=== PATIENT | female | born 1985 | race Caucasian/White ===

== ENCOUNTER → 2019-05-13 12:10 | Outpatient (CLI) | payer OTHER, SELFPAY ==
[2019-05-13 13:01] LABS: Add Manual Diff / Slide Review NO; Basophils Absolute Auto 100 /uL (0-100); Basophils Percent Auto 0.8 % (0-2); Eosinophils Absolute Auto 500 /uL (0-450); Eosinophils Percent Auto 3.8 % (2-4); Hematocrit 39.2 % (36-46); Hemoglobin 13.1 g/dL (12.0-16.0); Lymphocytes Absolute Auto 2900 /uL (1100-4500); Lymphocytes Percent Auto 24.2 % (25-40); Mean Corpuscular HGB Conc 33.5 % (30-36); Mean Corpuscular Hemoglobin 29.6 PG (26-34); Mean Corpuscular Volume 88.5 fL (80-100); Monocytes Absolute Auto 1200 /uL (0-900); Monocytes Percent Auto 10.2 % (3-14); Neutrophils Absolute Auto 7200 /uL (1500-7000); Platelet Count 273 X10^3/uL (150-400); Red Blood Cell Count 4.43 X10^6/uL (4.0-5.2); Red Cell Distribution Width 12.9 % (11.6-14.8); White Blood Cell Count 11.9 X10^3/uL (4.5-11.0)
[2019-05-13 13:13] LABS: Appearance Urine UA CLEAR; Bilirubin Urine UA NEGATIVE (NEGATIVE); Color Urine UA YELLOW; Glucose Urine UA NEGATIVE (Negative); Ketones Urine UA NEGATIVE (NEGATIVE); Leukocyte Esterase Urine UA NEGATIVE (NEGATIVE); Nitrite Urine UA NEGATIVE (Negative); Occult Blood Urine UA NEGATIVE (Negative); Protein Urine UA NEGATIVE (Negative); Specific Gravity Urine UA 1.015 (1.000-1.035); Urobilinogen Urine UA 0.2 E.U./dL (0.2)
[2019-05-13 13:19] LABS: pH Urine UA 5.5 (4.5-8.0)
[2019-05-13 13:27] LABS: Hemoglobin A1C% w Est Avg Glu 5.1 % (4.0-6.0)
[2019-05-13 16:36] LABS: Hepatitis B Surface Antigen NEGATIVE s/c (NEGATIVE); Rubella Antibody IgG 44.7 IU/mL (>15)
[2019-05-13 16:53] LABS: HIV 1 & 2 Ab/Ag 4th Gen Combo NEGATIVE (NEGATIVE); Hep C Virus Ab w/Reflex Quant NEGATIVE s/c (NEGATIVE)
[2019-05-15 14:35] LABS: Rubeola Measles IgG < 13.50 AU/mL (< 13.50); Varicella IgG Antibody < 135.00 Index (< 135.00)
[2019-05-15 20:36] LABS: RPR Screen Nonreactive (Nonreactive)
== END ==
PROVIDERS: Referring Provider Obstetrics & Gynecology; Visit Provider Obstetrics & Gynecology
DX: Z34.01 Encounter for supervision of normal first pregnancy, first trimester (principal)
CPT/HCPCS: 36415; 80055; 81003; 83036; 86735; 86765; 86787; 86803; 86850; 86900; 86901; 87086; 87389

== ENCOUNTER → 2019-08-05 12:11 | Outpatient (CLI) | payer OTHER, SELFPAY ==
--- NOTE | 2019-08-05 12:12 | DI.US.S_ITS ---
PROCEDURE: US OB >= 14 WEEKS FETUS INDICATIONS: ANATOMY OUTSIDE/PRIOR DATING DATA: Last menstrual period (LMP): Not available. LMP-based estimated date of delivery (SIMRAN): Not available. First dating scan (date and location): 05/13/19. Estimated date of delivery (SIMRAN) from first dating scan: 12/20/19. TECHNIQUE: Real-time scanning was performed of the fetus, with image documentation and biometric measurements. Endovaginal scanning: Not needed COMPARISON: None. FINDINGS: General: A single living intrauterine gestation is present. Presentation: Breech. Placenta: Placental position is anterior, without previa. Amniotic fluid index: 17.5 cm, normal range is 5-24 cm. heart rate: 150 beats per minute. Maternal cervical canal: 4.5 cm long. Normal lower limit is 2.5 cm. biometrics: Biparietal diameter: 4.6 cm, 20 weeks 0 days Head circumference: 17.2 cm, 19 weeks 5 days Abdominal circumference: 14.7 cm, 20 weeks 0 days Femur length: 3.3 cm, 20 weeks 3 days Estimated gestational age from initial scan: 20 weeks 3 days Composite gestational age from present scan: 20 weeks 0 days Estimated weight and percentile: 336 g, 41st percentile Measurement variability for biometric dating: +/- 7 days from 14 weeks to 15 weeks 6 days gestation, +/- 10 days from 16 weeks to 21 weeks 6 days gestation, +/- 2 weeks from 22 weeks to 27 weeks 6 days gestation, +/- 3 weeks for 28 weeks gestation or later. weight reference: 4500 g or EFW >90/95% is considered macrosomia or large for gestational age. EFW <10% is small for gestational age. EFW 5% or less is considered intra-uterine growth restriction. Anatomic survey: Neuro: Ventricles are non-dilated at less than 10 mm. Cisterna magna is normal at 3-11 mm. Cerebellum is normal in size and morphology. Nuchal skin fold: Normal at less than 6 mm between 14-21 weeks gestational age. Face: Nose and lips, facial profile are normal. Spine: No evidence for spina bifida. Heart: 4-chambered heart is present, with normal ventricular outflow tracts. Diaphragm: Diaphragm is intact. Stomach: Left-sided stomach is present. Kidneys: No hydronephrosis. Normal is less than 5 mm in 2nd trimester, less than 7 mm in 3rd trimester. Cord: 3-vessel cord has orthotopic insertion. Bladder: Normal in size. Extremities: All 4 extremities identified. IMPRESSION: Appropriate interval growth, no anomaly seen. The delivery date is projected to be centered on 12/20/19. Dictated by: Jordy Rock M.D. on 08/05/2019 at 14:20 Approved by: Jordy Rock M.D. on 08/05/2019 at 14:26
== END ==
PROVIDERS: Referring Provider Obstetrics & Gynecology; Visit Provider Obstetrics & Gynecology
DX: Z34.02 Encounter for supervision of normal first pregnancy, second trimester (principal); Z3A.20 20 weeks gestation of pregnancy
CPT/HCPCS: 76811

== ENCOUNTER → 2019-10-02 11:30 | Outpatient (CLI) | payer OTHER, SELFPAY ==
[2019-10-02 13:31] LABS: Hematocrit 37.1 % (36-46); Hemoglobin 12.5 g/dL (12.0-16.0)
[2019-10-02 14:21] LABS: GTT (PREG) 1 Hour PP 50gm Dose 107 mg/dL (76-139)
== END ==
PROVIDERS: PCP Obstetrics & Gynecology; Referring Provider Obstetrics & Gynecology; Visit Provider Obstetrics & Gynecology
DX: Z34.02 Encounter for supervision of normal first pregnancy, second trimester (principal); Z3A.24 24 weeks gestation of pregnancy
CPT/HCPCS: 36415; 82950; 85014; 85018

== ENCOUNTER → 2019-11-27 10:05 | Outpatient (CLI) | payer OTHER, SELFPAY ==
[2019-11-28 12:10] LABS: Strep Grp B PCR NEG for Grp B Strep
== END ==
PROVIDERS: PCP Obstetrics & Gynecology; Visit Provider Obstetrics & Gynecology
DX: Z34.03 Encounter for supervision of normal first pregnancy, third trimester (principal); Z3A.36 36 weeks gestation of pregnancy
CPT/HCPCS: 87653

== ENCOUNTER 2019-12-14 08:20 | Inpatient (IN) | payer OTHER, SELFPAY ==
--- NOTE | 2019-12-14 09:06 | P.HPOB_ITS ---
OB HPI Date/Time Date of admission: 12/14/19 Date Patient Seen: 12/14/19 Time Patient Seen: 09:06 History of Present Condition Chief complaint: OBS : 1 Para: 0 Estimated Date of Delivery: 12/23/19 Estimated Gestational Age (weeks): 38 Narrative: Sabi Benton is a 34 year old @38+5 presenting w [facility] SROM for clear fluid at 2AM, confirmed on presentation with amnisure and with ongoing leakage. She reports rare contractions, good movement, no vaginal bleeding, and no other complaints obstetrical or otherwise. Her has been uncomplicated, and she has no contributory medical, surgical, family, or social history. Indications Indication for induction OB: other (premature rupture of membranes) History of Present care: good care, initiated at week # (8), number of visits (13) and pounds weight gain (30) Dating criteria: LMP confirmed by 1st trimester US Ultrasounds: normal 1st trimester US and normal mid trimester US Obstetrical complications: none Medical complications: none Preadmission Labs Blood type: A (+) positive -: Antibody screen: negative, GBS status: negative, HBsAG: negative, HIV: negative and RPR/VDLR: negative -: Chlamydia screen: not detected and Gonorrhea screen: not detected -: Rubella: immune and Varicella: not immune PAP: Normal Sequential screen: declined aneuploidy screening and MSAFP Urine: mixed gram positive keyla 1 hr GTT: 107 Evaluation Evaluation Baseline heart rate: 140 Variability: Moderate (11-25) monitor accelerations: Present monitor decelerations: Absent Contraction Frequency (minutes): 20 Category of Tracing: Reactive Cervical dilation (cm): 1 Cervical effacement (%): 25 station: -3 Non-invasive Membranes Rupture Test: positive [facility] Medical History ADHD (Acute ~1996) Allergies (Chronic ~2006) Chicken pox (Resolved ~1988) Headache (Acute) Irregular menstrual cycle (Chronic ~2018) Kidney infection (Acute) Surgical History History of wisdom tooth extraction (Acute) Family History Mother Depression Alcoholism Heavy smoker Father Parkinsons Grandfather Alcoholism Heavy smoker Grandmother Diabetes mellitus Depression History of open heart surgery Grandfather Myocardial infarct Grandmother Cancer Breast cancer Social History marital status: pets and animals: Yes (cat X 1 and aware; and a dog) education level: college (some college) occupational status: employed ([employer] ) current occupational exposures/hazards: No special jojo needs: No Smoking Status: Former smoker (weed - former) second hand exposure: No alcohol intake: former (pre- : socially) substance use type: marijuana (former) Meds Home Medications and Allergies Home Medications Medication Instructions Recorded Confirmed Type prenat.vits,rossana,fpu-stcp-qhend 1 tab PO DAILY 05/13/19 12/14/19 History Allergies Allergy/AdvReac Type Severity Reaction Status Date / Time NSAIDS (Non-Steroidal Allergy Severe Closes up Verified 11/13/19 16:25 Anti-Inflamma airway! Review of Systems Constitutional Constitutional: Reports system reviewed and no additional complaints, except as documented Cardiovascular Cardiovascular: Reports system reviewed and no additional complaints, except as documented Respiratory Respiratory: Reports system reviewed and no additional complaints, except as documented Gastrointestinal Gastrointestinal: Reports system reviewed and no additional complaints, except as documented Genitourinary Genitourinary: Reports as per HPI Neurologic Neurologic: Reports system reviewed and no additional complaints, except as documented Exam Vital Signs (past 8 hours): 117/58, HR 90, T 35.8C Const General: cooperative, healthy appearing, comfortable and well developed GI Palpation: soft and No tender External Female Exam: normal external appearance Presentation: vertex Estimated Weight (lbs): 7 Amniotic Fluid: clear Extrem General: normal to inspection Assessment and Plan Assessment and Plan Assessment and Plan narrative: This patient presents with SROM, confirmed on admission. She has a alfred score of 2, with few contractions on toco. She will undergo cervical ripening with PO cytotec, with reevaluation between each dose with a low threshold to transition to pitocin. The risks of prolonged rupture and the option of pitocin vs. cytotec were discussed with the patient, who vocalized understanding. - 50mcg cytotec PO q4hr - EFM, toco per protocol - labs, covid test pending - light meal this AM
[2019-12-14] MEDS: miSOPROStoL 25 MCG TABLET 50 MCG PO ×2 (09:19→13:06)
[2019-12-14 09:23] LABS: COVID19 -Nasal RAPID Negative (Negative)
[2019-12-14 10:50] LABS: Add Manual Diff / Slide Review NO; Basophils Absolute Auto 100 /uL (0-100); Basophils Percent Auto 0.5 % (0-2); Eosinophils Absolute Auto 300 /uL (0-450); Eosinophils Percent Auto 2.7 % (2-4); Hematocrit 36.3 % (36-46); Hemoglobin 12.5 g/dL (12.0-16.0); Lymphocytes Absolute Auto 2100 /uL (1100-4500); Lymphocytes Percent Auto 17.5 % (25-40); Mean Corpuscular HGB Conc 34.3 % (30-36); Mean Corpuscular Hemoglobin 29.8 PG (26-34); Mean Corpuscular Volume 86.9 fL (80-100); Monocytes Absolute Auto 900 /uL (0-900); Neutrophils Absolute Auto 8400 /uL (1500-7000); Neutrophils Percent Auto 71.3 % (50-75); Platelet Count 228 X10^3/uL (150-400); Red Blood Cell Count 4.18 X10^6/uL (4.0-5.2); Red Cell Distribution Width 13.1 % (11.6-14.8); White Blood Cell Count 11.7 X10^3/uL (4.5-11.0)
--- NOTE | 2019-12-14 13:11 | PM.OBPNLAB ---
Date/Time Date Patient Seen: 12/14/19 Time Patient Seen: 13:14 Pain Control Pain control: tolerating well Pelvic Exam Dilation (cm): 1 Effacement (%): 70 station: -3 Amniotic membrane status: Leaking (clear) Comments: alfred score 5 Status status: Category l Heart Rate Baseline: 140 Monitor Accelerations: Present Monitor Decelerations: Absent Monitor Variability: Moderate Assessment and Plan Assessment: induction ongoing Plan: continuous present management Comments: patient remains unfavorable, will proceed with second dose oral cytotec
[2019-12-14 15:00] VITALS: BP 117/58
--- NOTE | 2019-12-14 17:10 | PM.OBPNLAB ---
Date/Time Date Patient Seen: 12/14/19 Time Patient Seen: 17:10 Pain Control Pain control: tolerating well Pelvic Exam Dilation (cm): 1 Effacement (%): 90 station: -2 Amniotic membrane status: Leaking (clear) Comments: 1.5cm, alfred score 9 Contractions Contraction frequency (min): 5 Contraction pattern: Regular Status status: Category l Heart Rate Baseline: 140 Monitor Accelerations: Present Monitor Decelerations: Absent Monitor Variability: Moderate Assessment and Plan Assessment: induction ongoing Plan: begin patient augmentation Comments: This patient presents for IOL for PROM at term, and has achieved a favorable cervix with a alfred score of 9. She will be induced with pitocin per the usual protocol.
[2019-12-14] MEDS: OXYTOCIN PREMIX 30 UNIT/500 ML PLAST..BAG IV (17:53)
[2019-12-14] MEDS: LACTATED RINGERS 1,000 ML 100 ML IV (17:53)
--- NOTE | 2019-12-14 22:32 | PM.AN.REGBLK ---
Regional Block Pre-procedure Procedure: Continuous Lumbar Epidural for L&D Attending OB provider: Cat LEES/KENN narrative: term labor, SROM at 0200 this am. Hx: No personal or family history of anesthesia problems. ASA Class: II Labs: Hct 36.3 % (36-46) 12/14/19 10:30 Plt Count 228 X10^3/uL (150-400) 12/14/19 10:30 Medications: Current Medications Generic Name Dose Route Start Last Admin Trade Name Freq PRN Reason Stop Dose Admin Diphenhydramine HCl 25 mg 12/14/19 21:29 Benadryl IV Q10M PRN Pruritis Lactated Ringer's 1,000 mls @ 100 mls/hr 12/14/19 09:15 12/14/19 17:53 Lactated Ringers IV 100 mls/hr CONT WINSTON Administration Oxytocin/Lactated Ringer's 30 unit in 500 mls @ 1 mls/hr 12/14/19 17:15 12/14/19 17:53 Oxytocin Premix IV 1 milliunit/min TITRATE WINSTON 1 mls/hr Administration Protocol 1 MILLIUNIT/MIN FENT 2MCG/ML BUPIV 0.125% EPI 200 mcg in 100 mls @ 6 mls/hr 12/14/19 21:30 Fentanyl/Bupiv/Ns 2mcg/Ml - 0.125% EPIDURAL CONT WINSTON Ondansetron HCl 4 mg 12/14/19 09:05 Zofran IV Q4HR PRN Nausea And Vomiting Allergies: Allergies Allergy/AdvReac Type Severity Reaction Status Date / Time NSAIDS (Non-Steroidal Allergy Severe Closes up Verified 11/13/19 16:25 Anti-Inflamma airway! Procedure Insertion date: 12/14/19 Insertion time: 22:05 Prep/Local: betadine x3 Interspace: L2-3 Patient position: sitting Needle: 18 gauge Foruforevertead (CSE@22:11 27g Pencan through Hustead, clear CSF, 1mL 0.25% bupiv) Loss of resistance with: saline MICHELE at (cm): 5 Catheter placed at SKIN (cm): 11 Catheter in SPACE (cm): 6 Insertion: No CSF, No Blood, No Paresthesia with insertion, No Paresthesia with injection and No Test dose reaction Initial Medications TEST DOSE time: 22:14 TEST DOSE: 1.5% lidocaine with epinephrine 1:200k (mL): 3 BOLUS DOSE time: 22:21 BOLUS DOSE (mL): 3 BOLUS DOSE med: other (infusate) Infusion INFUSION: 0.125% bupivacaine and with fentanyl 2 mcg/mL Initial rate (mL/hr): 6 Subsequent interventions: , no complications Post-procedure Anesthesia time START: 22:05 Anesthesia time END: 05:12 Post-procedure Anesthesia Assessment: Yes CV function: HR/BP stable, Yes Resp function: RR/sat/airway adequate, Yes Post-op hydration adequate, Yes Pain control adequate, Yes Nausea & vomiting absent, Yes Mental status appropriate and No Anesthesia complications
[2019-12-15] MEDS: CALCIUM CARBONATE 500 MG TAB 1000 MG PO (01:30)
--- NOTE | 2019-12-15 05:37 | P.PCNOB_ITS ---
Events: Premature Rupture of Membrane and Prolonged Rupture of Membrane Labor & Delivery Delivery date: 12/15/19 Intrapartal events: Acceleration and Deceleration Cervical ripening method: per misoprostal protocol Induction method: per pitocin protocol Delivery monitor: external FHT and external uterine Route of delivery: L&D Laceration Description: Perineal - 2nd Degree Delivery repair: vicryl Estimated blood loss (mL): 200 Anesthesia type: Epidural Narrative: This patient presented 7 hours after PROM for clear fluid. She had a alfred score of 2, and underwent cervical ripening with two doses of 50mcg PO cytotec before transitioning to pitocin per protocol. After 4 hours, the pitocin was stopped due to uterine tachysystole. She progressed well and spontaneously, and after a short pushing stage, was delivered of a healthy baby girl. Apgars were 9+9, weight 6#8, shoulders delivered with ease, and there was no nuchal cord. The placenta delivered spontaneously and intact shortly thereafter, and a 2nd degree perineal laceration was repaired with 3-0 vicryl in the usual fashion. The patient was administered 30u pitocin in her IV fluid bolus after delivery per the usual protocol. There were no other intrapartum or immediate complications. Patient was GBS negative, was ruptured for approximately 27 hours prior to delivery, and there were no signs of chorioamnionitis. [place] Baby 1: Infant gender: Female Presentation: vertex position: Right Occiput Anterior (NACHO) Placenta delivery description: Spontaneous cord vessel description: 3 Vessels score (1 min): 9 score (5 min): 9 Plan for aftercare: Routine care.
[2019-12-15] MEDS: ACETAMINOPHEN 325 MG TABLET 650 MG PO ×2 (12:11→18:49)
[2019-12-15] MEDS: DOCUSATE 100 MG CAPSULE PO ×2 (12:11→18:49)
[2019-12-15] MEDS: OXYCODONE IR 5 MG TABLET PO (19:56)
[2019-12-15] MEDS: DERMOPLAST SPRAY 20% 60 ML 1 SPRAY TOP (19:56)
[2019-12-16] MEDS: OXYCODONE IR 5 MG TABLET PO (06:00)
--- NOTE | 2019-12-16 08:06 | P.DS_ITS ---
Discharge Providers Provider Date of admission: 12/14/19 08:20 Discharge Date: 12/16/19 Primary care physician: Cat Liu MD Consults: 12/16/19 05:36 Consult to Radioisotope Technician Routine Comment: Discharge provider: Cat Liu MD Summary Hospital Course Date Patient Seen: 12/16/19 Time Patient Seen: 08:07 Procedures: Hospital Course: This patient is a 34yo now P1 who presented with PROM and was induced with oral cytotec and pitocin. She progressed to fully dilated and after a short pushing stage, was delivered of a healthy baby girl without complication. A 2nd degree perineal laceration was repaired in the usual fashion, and she was discharged on PPD#1 with routine precautions and follow up. Peripartum Data Laceration Description: Perineal - 2nd Degree Procedures: complications: none [place] 1: Gender: Female Disposition of : home Status at Discharge Cognitive/behavioral status at discharge: oriented Functional status at discharge: independent ambulation Overall status at discharge: patient is progressing back to baseline Time Spent with Patient Time attestation: Total time spent providing and/or coordinating discharge services: Objective Labs Result Diagrams: 12/14/19 10:30 Exam Vital Signs (past 8 hours): 111/57, HR 76 Narrative Exam Narrative: Patient feeling well this AM, voiding, tolerating PO, ambulating, passing flatus, mild to moderate lochia. Pain controlled on tylenol and oxycodone, patient allergic to NSAIDs. Discharge precautions discussed. Const General: cooperative, healthy appearing and comfortable Resp Effort & Inspection: normal respiratory effort Auscultation: clear to auscultation bilaterally Cardio Rate: regular rate Rhythm: regular rhythm GI Palpation: soft and No tender External Female Exam: normal external appearance Skin General: no rashes or lesions noted Extrem General: normal to inspection Discharge Plan Discharge Plan Patient Disposition: Home Discharge orders & Medications Prescriptions: New acetaminophen 325 mg capsule 650 mg PO Q6H PRN (Reason: pain (scale score 4-6)) Qty: 30 RF: 0 oxycodone 5 mg tablet 5 mg PO Q6H PRN (Reason: pain) Qty: 14 RF: 0 Continued prenat.vits,rossana,eru-qsco-xubpe Tablet 1 tab PO DAILY RF: 0 Follow up/Referrals: Cat Liu MD [Primary Care Provider] - 6 Weeks () Diet/Activity/Treatments Diet: Regular Activity: Nothing in the vagina for 6 weeks. Avoid lifting more than 10 lbs for 6 weeks. If you have increasing bleeding, pain, fevers, chills, trouble breathing, headaches, visual changes, or any other concerning symptoms, call or come to the ED. Skin/Wound/Dressing Care Report to your healthcare provider any signs of infection, such as:: chills, fever, night sweats, increased pain, unusual drainage and unusual redness Visit Report/Discharge Packet Instructions: DI for Labor and Delivery, Vaginal Discharge Data Primary Care Provider: Cat Liu
[2019-12-16] MEDS: DOCUSATE 100 MG CAPSULE PO (09:01)
[2019-12-16] MEDS: ACETAMINOPHEN 325 MG TABLET 650 MG PO (09:01)
[2019-12-16 09:38] VITALS: BP 111/72; PULSE 74; RESP 16; TEMP 36.5
== END 2019-12-16 11:34 | disposition home or self-care (01) | DRG 807 ==
PROVIDERS: Admitting Provider Obstetrics & Gynecology; PCP Obstetrics & Gynecology; Referring Provider Obstetrics & Gynecology; Visit Provider Obstetrics & Gynecology
DX: O42.12 Full-term premature rupture of membranes, onset of labor more than 24 hours following rupture (principal); Z37.0 Single live birth; Z3A.38 38 weeks gestation of pregnancy; O70.1 Second degree perineal laceration during delivery; Z11.59 Encounter for screening for other viral diseases
CPT/HCPCS: 01967; 36415; 59050; 59400; 85025; 86850; 86900; 86901; 87635; G0379; J2590

== ENCOUNTER → 2021-01-27 14:12 | Outpatient (CLI) | payer OTHER, SELFPAY ==
--- NOTE | 2021-01-27 14:13 | DI.US.S_ITS ---
PROCEDURE: US OB <= 14 WEEKS FETUS INDICATIONS: initial us for dating and viability OUTSIDE/PRIOR DATING DATA: Last menstrual period (LMP): 11/26/2020. LMP-based estimated date of delivery (SIMRAN): 09/02/2021. First dating scan (date and location): 01/27/2021. Estimated date of delivery (SIMRAN) from first dating scan: 08/31/2021. TECHNIQUE: Real-time scanning was performed of the fetus and maternal pelvic organs, with image documentation. Endovaginal scanning was also performed to better visualize the fetus and maternal ovaries. COMPARISON: [facility], , OB <= 14 WEEKS FETUS, 05/13/2019, 11:55. FINDINGS: Embryo: [place]-rump length measures 2.4 cm consistent with 9 week 1 day gestation. Normal appearing yolk sac. Heart rate: 173 beats per minute Perigestational bleed measures 1.9 x 0.9 x 0.6 cm Measurement variability in dating: +/- 4 weeks by LMP, +/- 7 days by mean sac diameter (use before 6 weeks gestation if crown-rump length not able to be measured), +/- 5 days by crown-rump length (up to 8 weeks 6 days gestation), +/- 7 days by crown-rump length (up to 13 weeks 6 days gestation). Maternal organs: Ovaries show appropriate vascularity and echotexture bilaterally. A 2 cm left corpus luteum cyst noted. . IMPRESSION: 1. Single live intrauterine consistent with a 9 week 1 day gestation 2. Small perigestational bleed measures 1.9 x 0.9 cm Approved by: Sonu Taylor M.D. on 01/27/2021 at 15:23
== END ==
PROVIDERS: PCP Family Medicine; Referring Provider Family Medicine; Visit Provider Family Medicine
DX: O46.91 Antepartum hemorrhage, unspecified, first trimester (principal); O34.81 Maternal care for other abnormalities of pelvic organs, first trimester; N83.12 Corpus luteum cyst of left ovary; Z3A.09 9 weeks gestation of pregnancy
CPT/HCPCS: 76801; 76817

== ENCOUNTER → 2021-03-31 14:59 | Outpatient (CLI) | payer OTHER, SELFPAY ==
[2021-03-31 15:47] LABS: Add Manual Diff / Slide Review NO; Basophils Absolute Auto 0 /uL (0-100); Basophils Percent Auto 0.4 % (0-2); Eosinophils Absolute Auto 600 /uL (0-450); Hematocrit 36.9 % (36-46); Hemoglobin 12.4 g/dL (12.0-16.0); Lymphocytes Absolute Auto 2400 /uL (1100-4500); Lymphocytes Percent Auto 21.1 % (25-40); Mean Corpuscular HGB Conc 33.6 % (30-36); Mean Corpuscular Hemoglobin 29.5 PG (26-34); Mean Corpuscular Volume 87.6 fL (80-100); Monocytes Absolute Auto 800 /uL (0-900); Monocytes Percent Auto 7.3 % (3-14); Neutrophils Absolute Auto 7400 /uL (1500-7000); Neutrophils Percent Auto 66.2 % (50-75); Platelet Count 244 X10^3/uL (150-400); Red Blood Cell Count 4.21 X10^6/uL (4.0-5.2); Red Cell Distribution Width 13.4 % (11.6-14.8); White Blood Cell Count 11.2 X10^3/uL (4.5-11.0)
[2021-04-01 06:50] LABS: RPR Screen Non Reactive (Non Reactive)
[2021-04-01 08:08] LABS: Varicella IgG Antibody <135 index (Immune >165)
[2021-04-01 20:20] LABS: Hepatitis B Surface Antigen NEGATIVE s/c (NEGATIVE)
[2021-04-01 20:43] LABS: HIV 1 & 2 Ab/Ag 4th Gen Combo NEGATIVE (NEGATIVE); Hep C Virus Ab w/Reflex Quant NEGATIVE s/c (NEGATIVE)
== END ==
PROVIDERS: PCP Family Medicine; Referring Provider Family Medicine; Visit Provider Family Medicine
DX: Z34.90 Encounter for supervision of normal pregnancy, unspecified, unspecified trimester (principal)
CPT/HCPCS: 36415; 80055; 86787; 86803; 86850; 86900; 86901; 87389

== ENCOUNTER → 2021-04-17 12:38 | Outpatient (CLI) | payer OTHER, SELFPAY ==
--- NOTE | 2021-04-17 12:40 | DI.US.S_ITS ---
PROCEDURE: US OB >= 14 WEEKS FETUS INDICATIONS: ANATOMY OUTSIDE/PRIOR DATING DATA: Last menstrual period (LMP): November 26, 2020. LMP-based estimated date of delivery (SIMRAN): September 02, 2021. First dating scan (date): January 27, 2021. Estimated date of delivery (SIMRAN) from first dating scan: August 31, 2021. TECHNIQUE: Real-time scanning was performed of the fetus, with image documentation and biometric measurements. COMPARISON: [facility], , OB >= 14 WEEKS FETUS, 11/27/2019, 10:13. FINDINGS: General: A single living intrauterine gestation is present. Presentation: Vertex. Placenta: Placental position is posterior , without previa. Amniotic fluid index: 13.6 cm, normal range is 5-24 cm. Single deepest vertical pocket is 4 cm. heart rate: 145 beats per minute. Maternal cervical canal: 5.1 cm long. Normal lower limit is 2.5 cm. biometrics: Biparietal diameter: 4.9 cm Head circumference: 18.1 cm Abdominal circumference: 16 cm Femur length: 3.6 cm Clinically estimated gestational age: 402 g +/-59 g; 76 percentile Composite gestational age from present scan: 21 weeks Estimated weight and percentile: 20 weeks, 4 days Anatomic survey: Neuro: Ventricles are non-dilated at less than 10 mm. Cisterna magna is normal at 3-11 mm. Cerebellum is normal in size and morphology. Nuchal skin fold: Normal at less than 6 mm between 14-21 weeks gestational age. Face: Nose and lips, facial profile are normal. Spine: No evidence for spina bifida. Heart: 4-chambered heart is present, with normal ventricular outflow tracts. Diaphragm: Diaphragm is intact. Stomach: Left-sided stomach is present. Kidneys: No hydronephrosis. Normal is less than 5 mm in 2nd trimester, less than 7 mm in 3rd trimester. Cord: 3-vessel cord has orthotopic insertion. Bladder: Normal in size. Extremities: All 4 extremities identified. IMPRESSION: Live single intrauterine gestation as detailed above. We strive to produce accurate, complete, and clear reports of imaging services. To assist us in improving patient care, this report was composed using standard report templates and voice recognition software. Therefore, it may contain abnormal punctuation, insertions and/or omissions. Occasional wrong-word or sound-alike substitutions may occur. Though we review the report and make efforts to correct it, we do recommend that the report be read carefully in proper context to recognize any text inaccuracies. Dictated by: Jean-Pierre Jackson M.D. on 04/17/2021 at 14:02 Approved by: Jean-Pierre Jackson M.D. on 04/17/2021 at 14:04
== END ==
PROVIDERS: PCP Family Medicine; Referring Provider Family Medicine; Visit Provider Family Medicine
DX: Z36.89 Encounter for other specified antenatal screening (principal); Z3A.21 21 weeks gestation of pregnancy
CPT/HCPCS: 76811

== ENCOUNTER → 2021-06-09 13:23 | Outpatient (CLI) | payer OTHER, SELFPAY ==
[2021-06-09 15:41] LABS: Hematocrit 36.4 % (36-46); Hemoglobin 12.5 g/dL (12.0-16.0)
[2021-06-09 16:14] LABS: GTT (PREG) 1 Hour PP 50gm Dose 101 mg/dL (76-139)
== END ==
PROVIDERS: PCP Family Medicine; Referring Provider Family Medicine; Visit Provider Family Medicine
DX: Z34.92 Encounter for supervision of normal pregnancy, unspecified, second trimester (principal); Z3A.26 26 weeks gestation of pregnancy
CPT/HCPCS: 36415; 82950; 85014; 85018

== ENCOUNTER → 2021-07-24 15:39 | Outpatient (CLI) | payer OTHER, SELFPAY ==
--- NOTE | 2021-07-24 15:40 | DI.US.S_ITS ---
PROCEDURE: US OB LIMITED INDICATIONS: size>dates OUTSIDE/PRIOR DATING DATA: Last menstrual period (LMP): 11/26/2020 LMP-based estimated date of delivery (SIMRAN): 09/02/2021. First dating scan (date and location): 01/27/2021. Estimated date of delivery (SIMRAN) from first dating scan: 08/31/2021. The calculations are made using the ultrasound SIMRAN of 08/31/2021. TECHNIQUE: Real-time scanning was performed of the fetus, with image documentation and biometric measurements. COMPARISON: [facility], US, US OB >= 14 WEEKS FETUS, 04/17/2021, 12:58. FINDINGS: General: A single living intrauterine gestation is present. Presentation: Vertex. Placenta: Placental position is posterior , without previa. Amniotic fluid index: 13.9 cm, normal range is 5-24 cm. heart rate: 144 beats per minute. Maternal cervical canal: 3.6 cm long. Normal lower limit is 2.5 cm. biometrics: Biparietal diameter: 36 weeks 2 days Head circumference: 37 weeks 2 days Abdominal circumference: 34 weeks 5 days Femur length: 33 weeks 1 day Clinically estimated gestational age: 34 weeks Composite gestational age from present scan: 35 weeks 3 days Estimated weight and percentile: 2496 g; 49th percentile Other: Not applicable. IMPRESSION: Single living IUP redemonstrated and interval growth is normal. We strive to produce accurate, complete, and clear reports of imaging services. To assist us in improving patient care, this report was composed using standard report templates and voice recognition software. Therefore, it may contain abnormal punctuation, insertions and/or omissions. Occasional wrong-word or sound-alike substitutions may occur. Though we review the report and make efforts to correct it, we do recommend that the report be read carefully in proper context to recognize any text inaccuracies. Dictated by: Mustapha LIGHT Interpreted: Aj Ramirez MD on 07/24/2021 at 16:50 Transcribed by: AMADOR on 07/24/2021 at 16:52 Approved by: Aj Ramirez M.D. on 07/24/2021 at 17:19
== END ==
PROVIDERS: PCP Family Medicine; Referring Provider Family Medicine; Visit Provider Family Medicine
DX: Z36.88 Encounter for antenatal screening for fetal macrosomia (principal); Z3A.35 35 weeks gestation of pregnancy
CPT/HCPCS: 76815

== ENCOUNTER → 2021-08-07 10:28 | Outpatient (CLI) | payer OTHER, SELFPAY ==
[2021-08-08 10:38] LABS: Strep Grp B PCR POS for Grp B Strep
== END ==
PROVIDERS: PCP Family Medicine; Visit Provider Family Medicine
DX: Z34.93 Encounter for supervision of normal pregnancy, unspecified, third trimester (principal); Z3A.36 36 weeks gestation of pregnancy
CPT/HCPCS: 87653

== ENCOUNTER 2021-09-06 11:38 | Outpatient (CLI) | payer OTHER, SELFPAY ==
--- NOTE | 2021-09-06 12:45 | P.TNLD_ITS ---
Visit Information Visit Information Date of evaluation: 09/06/21 Primary OB Provider: Tess Longo On-call OB Provider: Cookie Munoz Reason for Evaluation: Yes non-stress test non-stress test reason: other (postdates) [facility] Medical History ADHD (~1996) Allergies (~2006) Chicken pox (~1988) Headache Hyperlipidemia (~2009) Irregular menstrual cycle (~2018) Kidney infection Vaginal delivery Surgical History History of wisdom tooth extraction Family History Mother Depression Alcoholism Heavy smoker Cirrhosis with alcoholism Born by section Father Parkinsons Myocardial infarct Stented coronary artery Grandfather Alcoholism Heavy smoker Grandmother Diabetes mellitus Depression History of open heart surgery Grandfather Myocardial infarct Grandmother Cancer Breast cancer Social History marital status: number of children: 1 household members: spouse and children lives independently: Yes caregiver/support person: No housing: house pets and animals: Yes (cat X 1 and aware; and a dog) education level: college occupational status: employed current occupational exposures/hazards: Yes (Exhaust fumes from bus, 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 [employer] special jojo needs: Yes (Congregational waiver to decline COVID vaccines. ) seatbelt use: always do you feel safe at home: Yes Smoking Status: Never smoker second hand exposure: No alcohol intake: former substance use type: marijuana during the past year weight has: remained stable well-balanced diet: daily or most days daily servings fruits/ve-4 caffeine: Yes (1 cup coffee daily. ) Type(s) of exercise: normal ROM and activity frequency: does not exercise Evaluation Evaluation Baseline heart rate: 130 Variability: Moderate (11-25) monitor accelerations: Present Monitor Decelerations: Absent Category of Tracing: Reactive Diagnosis, Plan/Disposition Final Diagnosis (1) Post-term , 40-42 weeks of gestation: Status: Acute Plan/Disposition Plan: Reactive nonstress test. F/U in 5 days. OB Disposition: home
== END 2021-09-06 12:45 | disposition home or self-care (01) ==
LOC: LABOR 12:15 → OB 09-08 07:23
PROVIDERS: PCP Family Medicine; Referring Provider Specialist; Visit Provider Specialist
DX: O48.0 Post-term pregnancy (principal); Z3A.40 40 weeks gestation of pregnancy
CPT/HCPCS: 59025; G0378; G0379

== ENCOUNTER 2021-09-08 21:49 | Inpatient (IN) | payer OTHER, SELFPAY ==
[2021-09-08] MEDS: LACTATED RINGERS 1,000 ML 100 ML IV (23:15)
[2021-09-08] MEDS: PENICILLIN G POTASSIUM 5,000,000 UNIT in DEXTROSE 5% IN WATER 250 ML 250 UNIT IV (23:16)
[2021-09-08 23:42] VITALS: BP 122/78
[2021-09-08 23:46] LABS: Add Manual Diff / Slide Review NO; Basophils Absolute Auto 0 /uL (0-100); Basophils Percent Auto 0.4 % (0-2); Eosinophils Absolute Auto 200 /uL (0-450); Eosinophils Percent Auto 1.5 % (2-4); Hematocrit 37.1 % (36-46); Hemoglobin 12.8 g/dL (12.0-16.0); Lymphocytes Absolute Auto 2300 /uL (1100-4500); Lymphocytes Percent Auto 20.9 % (25-40); Mean Corpuscular HGB Conc 34.6 % (30-36); Mean Corpuscular Volume 86.9 fL (80-100); Monocytes Absolute Auto 800 /uL (0-900); Monocytes Percent Auto 7.1 % (3-14); Neutrophils Absolute Auto 7600 /uL (1500-7000); Neutrophils Percent Auto 70.1 % (50-75); Platelet Count 233 X10^3/uL (150-400); Red Blood Cell Count 4.26 X10^6/uL (4.0-5.2); Red Cell Distribution Width 13.9 % (11.6-14.8); White Blood Cell Count 10.8 X10^3/uL (4.5-11.0)
--- NOTE | 2021-09-08 23:50 | PM.AN.REGBLK ---
Regional Block Pre-procedure Procedure: Continuous Lumbar Epidural for L&D Attending OB provider: Madelaine Hernandez PMH/ROS narrative: term labor, no complications ASA Class: II Labs: Hct 37.1 % (36-46) 09/08/21 22:45 Plt Count 233 X10^3/uL (150-400) 09/08/21 22:45 Medications: Current Medications Generic Name Dose Route Start Last Admin Trade Name Freq PRN Reason Stop Dose Admin Calcium Carbonate 1,000 mg 09/08/21 22:19 Calcium Carbonate 500 Mg Tab PO Q2HR PRN Dyspepsia Carboprost Tromethamine 250 mcg 09/08/21 22:19 Carboprost 250 Mcg/Ml Ampul IM Q90M PRN Bleeding Fentanyl 50 mcg 09/08/21 22:19 Fentanyl 100 Mcg/2 Ml Inj IV Q1H PRN Pain, Moderate (4-6) Lactated Ringer's 1,000 mls @ 100 mls/hr 09/08/21 22:30 09/08/21 23:15 Lactated Ringers IV 100 mls/hr CONT WINSTON Administration Oxytocin/Lactated Ringer's 30 unit in 500 mls @ 200 mls/hr 09/08/21 22:19 Oxytocin Premix IV CONT PRN Bleeding Protocol Tranexamic Acid 1,000 mg/ 100 mls @ 200 mls/hr 09/08/21 22:19 Sodium Chloride IV NOW PRN Bleeding Penicillin G Potassium 3,000,000 unit in 50 mls @ 100 mls/hr 09/09/21 02:30 Penicillin G Potassium IV Q4H WINSTON Oxytocin/Lactated Ringer's 30 unit in 500 mls @ 1 mls/hr 09/08/21 22:30 Oxytocin Premix IV TITRATE WINSTON Protocol 1 MILLIUNIT/MIN Methylergonovine Maleate 0.2 mg 09/08/21 22:19 Methylergonovine 0.2 Mg Tablet PO Q6HR PRN Heavy Bleeding Methylergonovine Maleate 0.2 mg 09/08/21 22:19 Methylergonovine 0.2 Mg/Ml Vial IM NOW PRN Bleeding Metoclopramide HCl 10 mg 09/08/21 22:19 Metoclopramide 10 Mg/2 Ml Inj IV NOW PRN Nausea And Vomiting Misoprostol 800 mcg 09/08/21 22:19 Misoprostol 200 Mcg Tablet IA NOW PRN Bleeding Misoprostol 1,000 mcg 09/08/21 22:19 Misoprostol 200 Mcg Tablet IA NOW PRN Bleeding Misoprostol 400 mcg 09/08/21 22:19 Misoprostol 200 Mcg Tablet SL NOW PRN Bleeding Naloxone HCl 0.2 mg 09/08/21 22:19 Naloxone 0.4 Mg/Ml Vial IV Q2MIN PRN Opiate Reversal Ondansetron HCl 4 mg 09/08/21 22:19 Ondansetron 4 Mg/2 Ml Inj IV Q4HR PRN Nausea And Vomiting Oxytocin 10 unit 09/08/21 22:19 Oxytocin 10 Unit/Ml Vial IM NOW PRN Bleeding Allergies: Allergies Allergy/AdvReac Type Severity Reaction Status Date / Time NSAIDS (Non-Steroidal Allergy Severe Closes up Verified 08/29/21 14:45 Anti-Inflamma airway! Procedure Insertion date: 09/09/21 Insertion time: 03:50 Prep/Local: betadine x3 and 1% lidocaine Interspace: L3-4 Patient position: sitting Needle: 18 gauge [employer] (CSE: 27g Pencan through Hustead, clear CSF, 0.5mL 0.5% bupiv MPF) Loss of resistance with: saline MICHELE at (cm): 5 Catheter placed at SKIN (cm): 10 Catheter in SPACE (cm): 5 Insertion: No CSF, No Blood, No Paresthesia with insertion, No Paresthesia with injection and No Test dose reaction Initial Medications TEST DOSE time: 03:51 TEST DOSE: 1.5% lidocaine with epinephrine 1:200k (mL): 3 BOLUS DOSE time: 04:04 BOLUS DOSE (mL): 4 BOLUS DOSE med: other (infusate) Infusion INFUSION: 0.125% bupivacaine and with fentanyl 2 mcg/mL Initial rate (mL/hr): 6 Subsequent interventions: rate 6 -> 8mL/h @ 1200. 1300 Post-procedure Anesthesia time START: 03:49 Anesthesia time END: 13:00 Post-procedure Anesthesia Assessment: Yes CV function: HR/BP stable, Yes Resp function: RR/sat/airway adequate, Yes Mental status appropriate and No Anesthesia complications
[2021-09-08 23:58] LABS: COVID19 -Nasal RAPID Negative (Negative)
[2021-09-09] MEDS: PENICILLIN G POTASSIUM 3,000,000 UNIT/50 ML FROZ.PIGGY 100 UNIT IV ×3 (03:15→11:00)
[2021-09-09] MEDS: LACTATED RINGERS 1,000 ML 100 ML IV ×2 (03:15→11:40)
[2021-09-09] MEDS: OXYTOCIN PREMIX 30 UNIT/500 ML PLAST..BAG IV (06:25)
--- NOTE | 2021-09-09 09:35 | PM.OBHP.IH.1 ---
OB HPI Date/Time Date of admission: 09/08/21 Date Patient Seen: 09/09/21 Time Patient Seen: 09:35 History of Present Condition Chief complaint: observation of labor SIMRAN Calculator Estimated Delivery Date Method Current WG Current Estimate 09/02/21 LMP (Certain) 41w 0d Other Estimates 08/31/21 Ultrasound #1 41w 2d Estimated Gestational Age (weeks): 41 : 2 Para: 1 care: good care, initiated at week # (10), number of visits (14) and pounds weight gain (31) Dating criteria OB: LMP confirmed by 1st trimester US Ultrasounds: normal 1st trimester US and normal mid trimester US Obstetrical complications: none Medical complications OB: none Preadmission Labs Last OB Lab Results: Blood Type A Positive 09/08/21 22:45 Antibody Screen Negative 09/08/21 22:45 Hematocrit 37.1 % (36-46) 09/08/21 22:45 Hemoglobin 12.8 g/dL (12.0-16.0) 09/08/21 22:45 Hepatitis B Surface Antigen Negative s/c (NEGATIVE) 03/31/21 15:19 Hepatitis C Antibody Negative s/c (NEGATIVE) 03/31/21 15:19 Rubella Antibody 39.0 IU/mL (>15) 03/31/21 15:19 Varicella-Zoster IgG Antibody <135 index (Immune >165) L 03/31/21 15:19 Glucose 1 Hour 101 mg/dL (76-139) 06/09/21 14:35 Group B Streptococcus (PCR) Pos for grp b strep H 08/07/21 10:28 -: Urine: negative -: PAP smear: Normal External Labs -: Urine: negative Prior (ies) Past Pregnancies Del. Date GA/Weeks Labor Lgth Wt Sex Route Outcome Anesthesia Place Delv Breastfeed Preg Comp Name 12/14/20 39.3 10 6 lb 8 oz Female vaginal live - full term epidural IH Dr. Liu 14 mos+, still BF; tongue tie none [place] Delivery Date: 12/14/20 Last Updated by: Ruthy Prince R.N. SROM without regular contractions. Pitocin augmentation. 2nd degree tear w repair. Some PP blues, but no true depression. Evaluation Evaluation Baseline heart rate: 135 Variability: Average (6-10) monitor accelerations: Present Monitor Decelerations: Early Contraction Frequency (minutes): 3 Uterine Contraction Intensity: Strong/Firm Status: Category ll Dilation (cm): 8 Effacement (%): 95 station: -1 Position of cervix: anterior Consistency: soft PFSH Medical History ADHD (~1996) Allergies (~2006) Chicken pox (~1988) Headache Hyperlipidemia (~2009) Irregular menstrual cycle (~2018) Kidney infection Vaginal delivery Surgical History History of wisdom tooth extraction Family History Mother Depression Alcoholism Heavy smoker Cirrhosis with alcoholism Born by section Father Parkinsons Myocardial infarct Stented coronary artery Grandfather Alcoholism Heavy smoker Grandmother Diabetes mellitus Depression History of open heart surgery Grandfather Myocardial infarct Grandmother Cancer Breast cancer Social History marital status: number of children: 1 household members: spouse and children lives independently: Yes caregiver/support person: No housing: house pets and animals: Yes (cat X 1 and aware; and a dog) education level: college occupational status: employed current occupational exposures/hazards: Yes (Exhaust fumes from bus, 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 [employer] special jojo needs: Yes (Lutheran waiver to decline COVID vaccines. ) seatbelt use: always do you feel safe at home: Yes Smoking Status: Never smoker second hand exposure: No alcohol intake: former substance use type: marijuana during the past year weight has: remained stable well-balanced diet: daily or most days daily servings fruits/ve-4 caffeine: Yes (1 cup coffee daily. ) Type(s) of exercise: normal ROM and activity frequency: does not exercise Meds Home Medications and Allergies Home Medications Medication Instructions Recorded Confirmed Type prenat.vits,rossana,vfl-abxr-oeuoc 1 tab PO DAILY 05/13/19 09/08/21 History acetaminophen 325 mg capsule 650 mg PO Q6H PRN pain (scale 12/16/19 09/08/21 Rx score 4-6) #30 caps folic acid 800 mcg tablet 0.8 mg PO DAILY 02/03/21 09/08/21 History Allergies Allergy/AdvReac Type Severity Reaction Status Date / Time NSAIDS (Non-Steroidal Allergy Severe Closes up Verified 08/29/21 14:45 Anti-Inflamma airway! OB Exam Narrative Exam Narrative: Generally: Patient lying on her right side, comfortable with epidural Lungs: Clear to auscultation bilaterally Cardiovascular: Regular rate and rhythm Fundal height: 40 cm Estimated weight: 9 lb Extremities: Trace edema, 1+ DTRs Objective Labs Result Diagrams: 09/08/21 22:45 Labs: Laboratory Results - last 24 hr 09/08/21 09/08/21 09/08/21 22:45 22:45 22:45 WBC 10.8 RBC 4.26 Hgb 12.8 Hct 37.1 MCV 86.9 MCH 30.0 MCHC 34.6 RDW 13.9 Plt Count 233 Neut % (Auto) 70.1 Lymph % (Auto) 20.9 L [place] % (Auto) 7.1 Eos % (Auto) 1.5 L Baso % (Auto) 0.4 Neut # (Auto) 7600 H Lymph # (Auto) 2300 [place] # (Auto) 800 Eos # (Auto) 200 Baso # (Auto) 0 SARS-CoV-2 (PCR) Negative Blood Type A Positive Antibody Screen Negative Assessment and Plan Assessment and Plan Assessment and Plan narrative: Assessment: 35-year-old 2 para 1 at 41 weeks gestation who presented last evening in early active labor Received an epidural at 3:00 a.m. GBS positive, status post 3 doses of antibiotics Plan: Artificial rupture of membranes with copious clear amniotic fluid Expected management to spontaneous vaginal delivery Time Spent with Patient Total time spent with greater than 50% in coordination of care (as documented) at patient's floor/unit and/or counseling patient:: 15-24 minutes
[2021-09-09] MEDS: FENT 2MCG/ML BUPIV 0.125% EPI 200 MCG/100 ML PLAST..BAG 6 MCG EPIDURAL (10:21)
[2021-09-09] MEDS: ONDANSETRON 4 MG/2 ML INJ IV (11:28)
--- NOTE | 2021-09-09 13:55 | P.PCNOB_ITS ---
Events: Labor Augmentation Labor & Delivery Delivery date: 09/09/21 Cervical ripening method: none Induction method: none Delivery augmentation: rupture of membranes and pitocin Delivery monitor: external FHT and external uterine Route of delivery: Episiotomy description: None L&D Laceration Description: Perineal - 2nd Degree and Vaginal - 2nd Degree Delivery repair: vicryl and chromic Estimated blood loss (mL): 400 Anesthesia Type: Epidural Complications: 40 sec shoulder dystocia Narrative: Patient complete and pushed for 12 minutes. At 1:00 p.m., a live male delivered spontaneously over an intact perineum in the NACHO presentation. There was a shoulder dystocia that was resolved with Kris and suprapubic pressure. There were 40 seconds between head and remainder of the body. The remainder of the body then delivered without difficulty and was placed on mom's abdomen. After the cord stopped pulsing, the cord was double clamped and cut. Cord bloods were obtained. Pitocin was given in the IV fluids. The placenta delivered intact with a three-vessel cord at 1:06 p.m.. The fundus was massaged to firm. There was a second-degree vaginal/perineal laceration which was repaired with 2 0 Vicryl and 2-0 chromic in the usual fashion. Hemostasis was achieved. Apgars 9 at 1 minute and 9 at 5 minutes. Epidural analgesia. Diana astfeeding. Mom and stable to recovery. Baby 1: gender: Male Presentation: vertex Position: Left Occiput Anterior Placenta delivery description: Spontaneous Cord Vessel Description: 3 Vessels score (1 min): 9 score (5 min): 9 weight: 8 lb 12 oz Plan for aftercare: Routine care
[2021-09-09] MEDS: DERMOPLAST SPRAY 20% 60 ML 1 SPRAY TOP (14:54)
[2021-09-09] MEDS: ACETAMINOPHEN 325 MG TABLET 650 MG PO ×2 (14:55→21:36)
[2021-09-10] MEDS: ACETAMINOPHEN 325 MG TABLET 650 MG PO ×2 (03:36→09:22)
[2021-09-10 07:00] VITALS: BP 117/74; PULSE 84; RESP 16; TEMP 36.1
[2021-09-10 07:45] LABS: Hematocrit 33.9 % (36-46); Hemoglobin 11.6 g/dL (12.0-16.0)
[2021-09-10] MEDS: DOCUSATE 100 MG CAPSULE PO (09:22)
[2021-09-10] MEDS: PRENATAL VIT,CALC/IRON/FOLIC 1 TABLET 1 TAB PO (09:22)
== END 2021-09-10 11:49 | disposition home or self-care (01) | DRG 807 ==
PROVIDERS: Admitting Provider Obstetrics & Gynecology; PCP Family Medicine; Referring Provider Obstetrics & Gynecology; Visit Provider Obstetrics & Gynecology
DX: O48.0 Post-term pregnancy (principal); Z37.0 Single live birth; Z3A.41 41 weeks gestation of pregnancy; O99.824 Streptococcus B carrier state complicating childbirth; O70.1 Second degree perineal laceration during delivery; O66.0 Obstructed labor due to shoulder dystocia; Z20.822 Contact with and (suspected) exposure to COVID-19
CPT/HCPCS: 01967; 36415; 59050; 59400; 59409; 85014; 85018; 85025; 86850; 86900; 86901; 87635; C9803; G0379; J2405; J2540; J2590

== ENCOUNTER → 2023-10-18 10:01 | Outpatient (CLI) | payer OTHER, SELFPAY | PROVIDERS: Referring Provider Student in an Organized Health Care Education/Training Program; Visit Provider Student in an Organized Health Care Education/Training Program | DX: Z34.90 Encounter for supervision of normal pregnancy, unspecified, unspecified trimester (principal) | CPT/HCPCS: 87086 ==

== ENCOUNTER → 2023-11-14 11:01 | Outpatient (CLI) | payer OTHER, SELFPAY ==
[2023-11-14 12:06] LABS: Add Manual Diff / Slide Review NO; Basophils Absolute Auto 100 /uL (0-100); Basophils Percent Auto 0.6 % (0-2); Eosinophils Absolute Auto 300 /uL (0-450); Eosinophils Percent Auto 2.4 % (2-4); Hematocrit 39.9 % (36-46); Hemoglobin 13.4 g/dL (12.0-16.0); Lymphocytes Absolute Auto 2500 /uL (1100-4500); Lymphocytes Percent Auto 22.8 % (25-40); Mean Corpuscular HGB Conc 33.7 % (30-36); Mean Corpuscular Hemoglobin 29.2 PG (26-34); Mean Corpuscular Volume 86.9 fL (80-100); Monocytes Absolute Auto 900 /uL (0-900); Monocytes Percent Auto 8.1 % (3-14); Neutrophils Absolute Auto 7200 /uL (1500-7000); Neutrophils Percent Auto 66.1 % (50-75); Platelet Count 248 X10^3/uL (150-400); Red Cell Distribution Width 13.9 % (11.6-14.8); White Blood Cell Count 10.9 X10^3/uL (4.5-11.0)
[2023-11-14 12:48] LABS: Hepatitis B Surface Antigen NEGATIVE s/c (NEGATIVE); Rubella Antibody IgG 45.8 IU/mL (>15)
[2023-11-14 13:05] LABS: HIV 1 & 2 Ab/Ag 4th Gen Combo NEGATIVE (NEGATIVE); Hep C Virus Ab w/Reflex Quant NEGATIVE s/c (NEGATIVE)
[2023-11-15 06:05] LABS: RPR Screen Non Reactive (Non Reactive)
[2023-11-15 07:10] LABS: Varicella IgG Antibody <135 index (Immune >165)
== END ==
PROVIDERS: Referring Provider Student in an Organized Health Care Education/Training Program; Visit Provider Student in an Organized Health Care Education/Training Program
DX: Z34.90 Encounter for supervision of normal pregnancy, unspecified, unspecified trimester (principal)
CPT/HCPCS: 36415; 80055; 86787; 86803; 86850; 86900; 86901; 87389

== ENCOUNTER → 2024-01-17 11:05 | Outpatient (CLI) | payer OTHER, SELFPAY ==
--- NOTE | 2024-01-17 11:05 | DI.US.S_ITS ---
PROCEDURE: US OB >= 14 WEEKS FETUS INDICATIONS: anatomy scan OUTSIDE/PRIOR DATING DATA: Last menstrual period (LMP): 08/29/23 LMP-based estimated date of delivery (SIMRAN): 06/05/23. First dating scan (date and location): 10/18/23. Estimated date of delivery (SIMRAN) from first dating scan: 06/04/23. The calculations are made using the above SIMRAN. TECHNIQUE: Real-time scanning was performed of the fetus, with image documentation and biometric measurements. Endovaginal scanning: Not needed COMPARISON: [facility], , OB >= 14 WEEKS FETUS, 11/14/2023, 11:00. [facility], , OB >= 14 WEEKS FETUS, 09/06/2021, 11:34. FINDINGS: General: A single living intrauterine gestation is present. Presentation: Breech Placenta: Placental position is anterior, without marginal previa. Amniotic fluid index: 15.7 cm, normal range is 5-24 cm. Single deepest vertical pocket is 5.8 cm. heart rate: 155 beats per minute. Maternal cervical canal: 5.2 cm long. Normal lower limit is 2.5 cm. biometrics: Biparietal diameter: 4.8 cm, 20 weeks 4 days Head circumference: 18.0 cm, 20 weeks 3 days Abdominal circumference: 16.4 cm, 21 weeks 3 days Femur length: 3.5 cm, 20 weeks 6 days Clinically estimated gestational age: 20 weeks 1 day Composite gestational age from present scan: 20 weeks 6 days Estimated weight and percentile: 399 g, Anatomic survey: Neuro: Ventricles are non-dilated at less than 10 mm. Cisterna magna is normal at 3-11 mm. Cerebellum is normal in size and morphology. Nuchal skin fold: Normal at less than 6 mm between 14-21 weeks gestational age. Face: Nose and lips, facial profile are normal. Spine: No evidence for spina bifida, relatively poor quality visualization of the cervical portion of the spine.. Heart: 4-chambered heart is present, with normal ventricular outflow tracts. Diaphragm: Diaphragm is intact. Stomach: Left-sided stomach is present. Kidneys: No hydronephrosis. Normal is less than 5 mm in 2nd trimester, less than 7 mm in 3rd trimester. Cord: 3-vessel cord has orthotopic insertion. Bladder: Normal in size. Extremities: All 4 extremities identified. IMPRESSION: Single living intrauterine gestation with appropriate interval growth and no anomaly seen. Marginal placenta previa with the inferior tip of the placenta at the internal os margin. Follow-up ultrasound with targeted attention to this issues recommended, to include consideration of trans labial scanning for best possible visualization of the exact termination of the inferior border of the placenta. At that time attempted repeat scanning of the cervical portion of the spine could be attempted. We strive to produce accurate, complete, and clear reports of imaging services. To assist us in improving patient care, this report was composed using standard report templates and voice recognition software. Therefore, it may contain abnormal punctuation, insertions and/or omissions. Occasional wrong-word or sound-alike substitutions may occur. Though we review the report and make efforts to correct it, we do recommend that the report be read carefully in proper context to recognize any text inaccuracies. Dictated by: Jordy Rock M.D. on 01/17/2024 at 13:49 Approved by: Jordy Rock M.D. on 01/17/2024 at 13:57
== END ==
PROVIDERS: Referring Provider Student in an Organized Health Care Education/Training Program; Visit Provider Student in an Organized Health Care Education/Training Program
DX: O44.22 Partial placenta previa NOS or without hemorrhage, second trimester (principal); Z3A.20 20 weeks gestation of pregnancy
CPT/HCPCS: 76811; 76817

== ENCOUNTER → 2024-02-21 15:49 | Outpatient (CLI) | payer OTHER, SELFPAY ==
--- NOTE | 2024-02-21 15:50 | DI.US.S_ITS ---
PROCEDURE: US OB FOLLOW UP INDICATIONS: re-evaluate marginal placenta previa, growth OUTSIDE/PRIOR DATING DATA: Last menstrual period (LMP): 08/29/23. LMP-based estimated date of delivery (SIMRAN): 06/04/24 First dating scan (date and location): 10/18/23 Estimated date of delivery (SIMRAN) from first dating scan: 06/04/23 TECHNIQUE: Real-time scanning was performed of the fetus, with image documentation. Endovaginal scanning: Performed for improved cervical detail. COMPARISON: None. FINDINGS: A single living intrauterine gestation is present. Presentation: Transverse, head to maternal left. Placenta: Placental position is anterior. Placental edge is 1.7 cm from the internal cervical os per technologist measurements on transvaginal imaging. No evidence of color Doppler flow near the internal cervical os. Amniotic fluid index: 16.2 cm, normal range is 5-24 cm. Single deepest vertical pocket is 5.6 cm. heart rate: 153 beats per minute. Maternal cervical canal: Closed and 5.1 cm long. Normal lower limit is 2.5 cm. Clinically estimated gestational age: 25 weeks one day Biparietal diameter 6.4 cm, 25 weeks five days Head circumference 23.3 cm, 25 weeks three days, Abdominal circumference 20.19 cm, 25 weeks three days Femur length 4.8 cm, 26 weeks 0 days Composite gestational age 25 weeks five days Estimated weight 832 g, 61st percentile Additional images of the cervical spine are within normal limits. IMPRESSION: Single living intrauterine with estimated weight at the 61st percentile, appropriate growth. Anterior, low lying placenta. Closed cervix and normal amniotic fluid volume. Completion of anatomic survey with normal cervical spine views. Dictated by: Abbey Guzmán M.D. on 02/21/2024 at 21:41 Approved by: Abbey Guzmán M.D. on 02/21/2024 at 21:49
== END ==
PROVIDERS: Referring Provider Student in an Organized Health Care Education/Training Program; Visit Provider Student in an Organized Health Care Education/Training Program
DX: O44.22 Partial placenta previa NOS or without hemorrhage, second trimester (principal); Z3A.25 25 weeks gestation of pregnancy
CPT/HCPCS: 76816; 76817

== ENCOUNTER → 2024-03-13 14:10 | Outpatient (CLI) | payer OTHER, SELFPAY ==
[2024-03-13 15:34] LABS: Hematocrit 37.5 % (36-46); Hemoglobin 12.7 g/dL (12.0-16.0)
[2024-03-13 15:42] LABS: GTT (PREG) 1 Hour PP 50gm Dose 110 mg/dL (76-139)
== END ==
PROVIDERS: Referring Provider Student in an Organized Health Care Education/Training Program; Visit Provider Student in an Organized Health Care Education/Training Program
DX: Z34.02 Encounter for supervision of normal first pregnancy, second trimester (principal); Z34.82 Encounter for supervision of other normal pregnancy, second trimester; Z3A.26 26 weeks gestation of pregnancy
CPT/HCPCS: 36415; 82950; 85014; 85018

== ENCOUNTER → 2024-04-03 14:17 | Outpatient (CLI) | payer BC, SELFPAY | PROVIDERS: Referring Provider Student in an Organized Health Care Education/Training Program; Visit Provider Student in an Organized Health Care Education/Training Program | DX: N89.8 Other specified noninflammatory disorders of vagina (principal) | CPT/HCPCS: 87480; 87510; 87660 ==

== ENCOUNTER → 2024-04-17 13:35 | Outpatient (CLI) | payer BC, SELFPAY ==
--- NOTE | 2024-04-17 13:37 | DI.US.S_ITS ---
PROCEDURE: US OB FOLLOW UP INDICATIONS: FOLLOW UP LOW LYING PLACENTA. GROWTH. OUTSIDE/PRIOR DATING DATA: Last menstrual period (LMP): 08/29/2023. LMP-based estimated date of delivery (SIMRAN): 06/04/2024. First dating scan (date and location): 10/18/2023. Estimated date of delivery (SIMRAN) from first dating scan: 06/03/2024. The calculations are made using the clinical SIMRAN of 06/04/2024. TECHNIQUE: Real-time scanning was performed of the fetus, with image documentation and biometric measurements. Endovaginal scanning: Not performed COMPARISON: [facility], , OB FOLLOW UP, 02/21/2024, 16:01. FINDINGS: General: A single living intrauterine gestation is present. Presentation: Vertex. Placenta: Placental position is anterior , without previa. Amniotic fluid index: 18.2 cm, normal range is 5-24 cm. Single deepest vertical pocket is 6.7 cm. heart rate: 141 beats per minute. Maternal cervical canal: 5.9 cm long. Normal lower limit is 2.5 cm. biometrics: Biparietal diameter: 8.4 cm, 34 weeks 0 days Head circumference: 30.2 cm, 33 weeks 4 days Abdominal circumference: 30.0 cm, 34 weeks 0 days Femur length: 6.3 cm, 32 weeks 3 days Clinically estimated gestational age: 33 weeks 1 day Composite gestational age from present scan: 33 weeks 4 days Estimated weight and percentile: 2203 g, 51% Other: Not applicable. IMPRESSION: 1. Single live intrauterine consistent with 33 weeks and 4 days. 2. Normal for growth with estimated weight in the 51st percentile. 3. No evidence of placenta previa or low lying placenta. We strive to produce accurate, complete, and clear reports of imaging services. To assist us in improving patient care, this report was composed using standard report templates and voice recognition software. Therefore, it may contain abnormal punctuation, insertions and/or omissions. Occasional wrong-word or sound-alike substitutions may occur. Though we review the report and make efforts to correct it, we do recommend that the report be read carefully in proper context to recognize any text inaccuracies. Dictated by: Alonso Brink M.D. on 04/18/2024 at 15:44 Approved by: Alonso Brink M.D. on 04/18/2024 at 15:47
== END ==
PROVIDERS: Referring Provider Student in an Organized Health Care Education/Training Program; Visit Provider Student in an Organized Health Care Education/Training Program
DX: O44.42 Low lying placenta NOS or without hemorrhage, second trimester (principal); O99.210 Obesity complicating pregnancy, unspecified trimester; Z3A.33 33 weeks gestation of pregnancy
CPT/HCPCS: 76816; 76817

== ENCOUNTER → 2024-05-08 13:32 | Outpatient (CLI) | payer BC, SELFPAY ==
[2024-05-09 11:09] LABS: Strep Grp B PCR POS for Grp B Strep
== END ==
PROVIDERS: Visit Provider Student in an Organized Health Care Education/Training Program
DX: Z36.85 Encounter for antenatal screening for Streptococcus B (principal)
CPT/HCPCS: 87653

== ENCOUNTER 2024-06-05 09:52 | Outpatient (CLI) | payer BC, SELFPAY ==
--- NOTE | 2024-06-05 10:38 | P.TNLD_ITS ---
Visit Information Visit Information Date of evaluation: 06/05/24 Primary OB Provider: Linnette Corona Reason for Evaluation: Yes non-stress test REPLACED BY [facility] Medical History (Updated 05/22/24 @ 10:47 by Todd Jimenez MD) Post-term , 40-42 weeks of gestation Hyperlipidemia (~2009) Vaginal delivery Chicken pox (~1988) Kidney infection ADHD (~1996) Surgical History History of wisdom tooth extraction Family History (Updated 10/17/23 @ 15:45 by Lida Hawley RN) Mother Depression Alcoholism Cirrhosis with alcoholism Born by section Smoker Seborrheic keratosis Father Parkinsons Myocardial infarct Stented coronary artery Stroke Grandfather Alcoholism Heavy smoker Grandmother Diabetes mellitus Depression History of open heart surgery Grandfather Myocardial infarct Gout Club foot of both lower extremities Grandmother Cancer Breast cancer Uncle Alcoholism Substance abuse Depression Social History marital status: number of children: 2 household members: spouse and children lives independently: Yes caregiver/support person: Yes housing: house pets and animals: Yes (cat and dog) education level: college (some college) 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 ) travel history: over 6 months ago seatbelt use: always helmet use: Yes water heater temp set < 120 deg: Yes working smoke detector in home: Yes fire extinguisher in home: Yes carbon monox detector in home: Yes firearms in home: Yes firearms unloaded and locked: Yes do you feel safe at home: Yes Smoking Status: Never smoker second hand exposure: Yes ( smokes) alcohol intake: former substance use type: marijuana during the past year weight has: increased > 10 lbs (started gaining weight after she stopped breast feeding) well-balanced diet: daily or most days daily servings fruits/ve or more times/day caffeine: Yes (1 small-med cup coffee daily. ) Type(s) of exercise: walking and normal ROM and activity frequency: daily Evaluation Evaluation Baseline heart rate: 120 Variability: Moderate (11-25) monitor accelerations: Present Monitor Decelerations: Absent Category of Tracing: Reactive Diagnosis, Plan/Disposition Final Diagnosis (1) Advanced maternal age (AMA) in : Status: Acute Plan/Disposition OB Disposition: home
== END 2024-06-05 10:40 | disposition home or self-care (01) ==
LOC: LABOR 10:13 → OB 12:40
PROVIDERS: Referring Provider Student in an Organized Health Care Education/Training Program; Visit Provider Student in an Organized Health Care Education/Training Program
DX: O09.523 Supervision of elderly multigravida, third trimester (principal); Z3A.40 40 weeks gestation of pregnancy
CPT/HCPCS: 59025; G0378; G0379

== ENCOUNTER 2024-06-12 15:00 | Outpatient (CLI) | payer BC, SELFPAY ==
--- NOTE | 2024-06-12 15:48 | PM.OBTRLD ---
Visit Information Visit Information Date of evaluation: 06/12/24 Primary OB Provider: Linnette Corona Reason for Evaluation: Yes non-stress test [facility] Medical History (Updated 06/12/24 @ 15:49 by Linnette Corona DO) Post-term , 40-42 weeks of gestation Hyperlipidemia (~2009) Vaginal delivery Chicken pox (~1988) Kidney infection ADHD (~1996) Surgical History History of wisdom tooth extraction Family History (Updated 10/17/23 @ 15:45 by Lida Hawley RN) Mother Depression Alcoholism Cirrhosis with alcoholism Born by section Smoker Seborrheic keratosis Father Parkinsons Myocardial infarct Stented coronary artery Stroke Grandfather Alcoholism Heavy smoker Grandmother Diabetes mellitus Depression History of open heart surgery Grandfather Myocardial infarct Gout Club foot of both lower extremities Grandmother Cancer Breast cancer Uncle Alcoholism Substance abuse Depression Social History marital status: number of children: 2 household members: spouse and children lives independently: Yes caregiver/support person: Yes housing: house pets and animals: Yes (cat and dog) education level: college (some college) occupational status: employed (national flatbed truck driver) current occupational exposures/hazards: No special jojo needs: Yes (Holiness waiver to decline COVID vaccines. ) travel history: over 6 months ago seatbelt use: always helmet use: Yes water heater temp set < 120 deg: Yes working smoke detector in home: Yes fire extinguisher in home: Yes carbon monox detector in home: Yes firearms in home: Yes firearms unloaded and locked: Yes do you feel safe at home: Yes Smoking Status: Never smoker second hand exposure: Yes ( smokes) alcohol intake: former substance use type: marijuana during the past year weight has: increased > 10 lbs (started gaining weight after she stopped breast feeding) well-balanced diet: daily or most days daily servings fruits/ve or more times/day caffeine: Yes (1 small-med cup coffee daily. ) Type(s) of exercise: walking and normal ROM and activity frequency: daily Evaluation Evaluation Baseline heart rate: 125 Variability: Moderate (11-25) monitor accelerations: Present Monitor Decelerations: Absent Category of Tracing: Reactive Diagnosis, Plan/Disposition Final Diagnosis (1) Advanced maternal age (AMA) in : Status: Acute (2) 41 weeks gestation of : Status: Acute Plan/Disposition Plan: Follow-up Saturday for induction of labor at 41+4wks. OB Disposition: home
== END 2024-06-12 15:45 | disposition home or self-care (01) ==
LOC: LABOR 15:10 → OB 06-15 09:16
PROVIDERS: Referring Provider Student in an Organized Health Care Education/Training Program; Visit Provider Student in an Organized Health Care Education/Training Program
DX: O09.523 Supervision of elderly multigravida, third trimester (principal); O48.0 Post-term pregnancy; Z3A.41 41 weeks gestation of pregnancy
CPT/HCPCS: 59025; G0378; G0379

== ENCOUNTER 2024-06-15 17:36 | Inpatient (IN) | payer BC, SELFPAY ==
[2024-06-15 18:30] VITALS: BP 113/67
[2024-06-15 19:01] LABS: Add Manual Diff / Slide Review NO; Basophils Absolute Auto 100 /uL (0-100); Basophils Percent Auto 0.7 % (0-2); Eosinophils Absolute Auto 300 /uL (0-450); Eosinophils Percent Auto 2.4 % (2-4); Hematocrit 38.5 % (36-46); Hemoglobin 13.2 g/dL (12.0-16.0); Lymphocytes Absolute Auto 2200 /uL (1100-4500); Lymphocytes Percent Auto 18.7 % (25-40); Mean Corpuscular HGB Conc 34.2 % (30-36); Mean Corpuscular Hemoglobin 29.8 PG (26-34); Monocytes Absolute Auto 800 /uL (0-900); Monocytes Percent Auto 6.5 % (3-14); Neutrophils Absolute Auto 8500 /uL (1500-7000); Neutrophils Percent Auto 71.7 % (50-75); Platelet Count 231 X10^3/uL (150-400); Red Blood Cell Count 4.43 X10^6/uL (4.0-5.2); Red Cell Distribution Width 14.5 % (11.6-14.8); White Blood Cell Count 11.9 X10^3/uL (4.5-11.0)
[2024-06-15] MEDS: miSOPROStoL 25 MCG TABLET VAG (20:04)
[2024-06-15] MEDS: AMPICILLIN 2,000 MG in SODIUM CHLORIDE 0.9% 100 ML 200 MG IV (21:42)
[2024-06-16] MEDS: LACTATED RINGERS 1,000 ML 100 ML IV (01:34)
[2024-06-16] MEDS: AMPICILLIN 1,000 MG in SODIUM CHLORIDE 0.9% 100 ML 200 MG IV (01:59)
--- NOTE | 2024-06-16 02:26 | PM.AN.REGBLK ---
Regional Block Pre-procedure PMH/ROS narrative: active labor PSH/Anesthesia history narrative: 2 prior epidurals ASA Class: II Labs: Hct 38.5 % (36-46) 06/15/24 18:50 Plt Count 231 X10^3/uL (150-400) 06/15/24 18:50 Medications: Current Medications Generic Name Dose Route Start Last Admin Trade Name Eugeneq PRN Reason Stop Dose Admin Carboprost Tromethamine 250 mcg 06/15/24 17:51 Carboprost 250 Mcg/Ml Ampul IM Q90M PRN Bleeding Lactated Ringer's 1,000 mls @ 100 mls/hr 06/15/24 18:00 06/16/24 01:34 Lactated Ringers IV 06/16/24 03:59 100 mls/hr CONT WINSTON Administration Oxytocin/Lactated Ringer's 30 unit in 500 mls @ 200 mls/hr 06/15/24 17:51 Oxytocin Premix IV CONT PRN Bleeding Protocol Tranexamic Acid 1,000 mg/ 100 mls @ 600 mls/hr 06/15/24 17:51 Sodium Chloride IV NOW PRN Bleeding Ampicillin Sodium 1,000 mg/ 100 mls @ 200 mls/hr 06/15/24 20:00 06/16/24 01:59 Sodium Chloride IV 200 mls/hr Q4H WINSTON Administration Lidocaine HCl 20 ml 06/15/24 17:51 Lidocaine 1% 20 Ml INJ INTRA-OP PRN Post Delivery Methylergonovine Maleate 0.2 mg 06/15/24 17:51 Methylergonovine 0.2 Mg/Ml Vial IM NOW PRN Bleeding Methylergonovine Maleate 0.2 mg 06/15/24 17:51 Methylergonovine 0.2 Mg Tablet PO Q6HR PRN Heavy Bleeding Mineral Oil 30 ml 06/15/24 17:51 Mineral Oil 30 Ml Udc TOP PRN PRN Version Misoprostol 400 mcg 06/15/24 17:51 Misoprostol 200 Mcg Tablet SL NOW PRN Bleeding Misoprostol 800 mcg 06/15/24 17:51 Misoprostol 200 Mcg Tablet ME NOW PRN Bleeding Misoprostol 25 mcg 06/15/24 17:51 06/15/24 20:04 Misoprostol 25 Mcg Tablet VAG 25 mcg Q4H PRN Administration cervical ripening Naloxone HCl 0.2 mg 06/15/24 17:51 Naloxone 0.4 Mg/Ml Vial IV Q2MIN PRN Opiate Reversal Ondansetron HCl 4 mg 06/15/24 17:51 Ondansetron 4 Mg/2 Ml Inj IV Q4HR PRN Nausea And Vomiting Oxytocin 10 unit 06/15/24 17:51 Oxytocin 10 Unit/Ml Vial IM NOW PRN Bleeding Allergies: Allergies Allergy/AdvReac Type Severity Reaction Status Date / Time NSAIDS (Non-Steroidal Allergy Severe Closes up Verified 06/12/24 14:40 Anti-Inflamma airway! red dye AdvReac Headache Verified 06/12/24 14:40 --: pt in sitting position. drape and prep with sterile technique. v/s/s. l3 l4 interspace identified. localized with lido 1% 3 cc. tuohy introduced. MICHELE syringe atached. with advancement encountered blood vessel. removed. moved slightly caudal. localized again with 2 cc lido 1%. tuohy introduced. MICHELE achieved with saline. DPE with 27 g pencil point needle to confirm placement. Procedure Insertion date: 06/16/24 Insertion time: 02:06 Prep/Local: betadine x3 (chlorhexadine) Interspace: l3 l4 Patient position: sitting Needle: 18 gauge Jing Loss of resistance with: saline MICHELE at (cm): 5 Catheter placed at SKIN (cm): 14 Sensory level: t10 Initial Medications TEST DOSE time: 02:08 TEST DOSE: 1.5% lidocaine with epinephrine 1:200k (mL): 2 BOLUS DOSE time: 02:11 BOLUS DOSE (mL): 5 BOLUS DOSE med: other (infusate) Infusion INFUSION: 0.125% bupivacaine and with fentanyl 2 mcg/mL Initial rate (mL/hr): 10 Subsequent interventions: n/a Post-procedure Anesthesia date START: 06/16/24 Anesthesia time START: 01:55
[2024-06-16] MEDS: miSOPROStoL 200 MCG TABLET 800 MCG PR (04:39)
--- NOTE | 2024-06-16 04:44 | PM.OBPRVD ---
Events: Labor Induction Labor & Delivery Delivery date: 06/16/24 Delivery Time: 04:16 Intrapartal Events: None Cervical ripening method: per misoprostal protocol Delivery monitor: external FHT and external uterine Route of delivery: L&D Laceration Description: Perineal - 1st Degree Delivery repair: vicryl Quantitative Blood Loss: 200 Anesthesia Type: Epidural Complications: none Narrative: The patient progressed to C/C/+1 after cytotec and epidural anesthesia. After approximately 30min of maternal pushing efforts, the infant delivered in OA position and restituted LOT. Nuchal cord x1 was reduced at the perineum. The anterior shoulder delivered with gentle downward pressure. The posterior shoulder and rest of body delivered with ease. The cord was doubly clamped and cut after a 60sec delay and the cord had stopped pulsing. The was placed on maternal abdomen. The placenta delivered spontaneously and was intact with a 3-vessel cord. The fundus was noted to be firm with bimanual massage and pitocin. Inspection of the cervix, vagina, and perineum was notable for a first degree perineal laceration. Repair was performed using 3-0 Vicryl in a running, unlocked fashion. Skin was reapproximated in a running, subcuticular fashion. At the end of the repair, all tissues noted to be hemostatic. Due to persistent oozing from the uterus, 1000mcg cytotec was placed rectally. All sponges were removed from the vagina. The patient tolerated delivery well and remained in the labor room with the infant at the bedside. Baby 1: gender: Female Presentation: vertex score (1 min): 9 score (5 min): 9 weight: 7 lb 9.695 oz Plan for aftercare: Routine care
--- NOTE | 2024-06-16 04:46 | P.HPOB_ITS ---
OB HPI Date/Time Date of admission: 06/15/24 Date Patient Seen: 06/16/24 Time Patient Seen: 03:45 History of Present Condition Chief complaint: OB SIMRAN Calculator 2 Estimated Delivery Date Method Current WG Current Estimate 06/04/24 LMP (Uncertain) 41w 5d Other Estimates 06/03/24 Ultrasound #1 41w 6d : 3 Para: 2 Narrative: 38yo at 41+4wks admitted for induction of labor for late term. care: good care Dating criteria OB: LMP confirmed by 1st trimester US Ultrasounds: normal mid trimester US Narrative: Ultrasound Ultrasound Details:: Dating US 10/18/23: emanuel IUP with CRL 1.15cm, + FCA 150bpm, normal appearing uterus, bilateral ovaries, and cervix Anatomy US 01/17/24: normal anatomy, anterior placenta with marginal previa Follow-up 02/21/24: EFW 61%, low-lying placenta Follow-up 04/17/24: vtx presentation, SERGO 18, EFW 51%ile, resolution of low- lying placenta Expected Delivery Route/Plan Specific Issues/Plans GBS positive Declined aneuploidy/carrier screening AMA--> ASA for ppx (given AMA & obesity)--> allergy to NSAIDs Obesity (pre-preg BMI 31) Hx of shoulder dystocia in G2--> resolved with Kris/suprapubic pressure Varicella NI Marginal placenta previa at 20wks--> pelvic rest; low lying placenta (1.7cm from the os) 02/21/24; [ x] repeat US at 34wks RESOLVED Refuses all vaccines Max Assigned to Chloe Preadmission Labs Last OB Lab Results: 2 Blood Type A Positive 06/15/24 18:50 Antibody Screen Negative 06/15/24 18:50 Hct 38.5 % (36-46) 06/15/24 18:50 Hgb 13.2 g/dL (12.0-16.0) 06/15/24 18:50 Hep Bs Antigen Negative s/c (NEGATIVE) 11/14/23 11:06 Hepatitis C Antibody Negative s/c (NEGATIVE) 11/14/23 11:06 Rubella Antibody 45.8 IU/mL (>15) 11/14/23 11:06 VZV IgG Antibody <135 index (Immune >165) L 11/14/23 11:06 Glucose 1 Hr 50 gm 110 mg/dL (76-139) 03/13/24 15:24 Hemoglobin A1c 5.1 % (4.0-6.0) 05/13/19 12:20 Group B Strep (PCR) Pos for grp b strep H 05/08/24 13:30 Glucose Tolerance Testin hr (negative) -: Chlamydia screen: negative, Gonorrhea screen: negative and Urine: negative -: PAP smear: Normal External Labs -: Urine: negative Prior (ies) Past Pregnancies Del. Date GA/Weeks Labor Lgth Wt Sex Route Outcome Anesthesia Place Delv Breastfeed Preg Comp Name 12/14/20 39.3 10 6 lb 8 oz Female vaginal live - full ter m epidural IH Dr. Liu 14 mos+, still BF; tongue tie none [place] 09/09/21 41 15 8 lb 14 oz Male vaginal live - full te [facility] 18 months none [place] Delivery Date: 12/14/20 Last Updated by: Ruthy Prince R.N. SROM without regular contractions. Pitocin augmentation. 2nd degree tear w repair. Some PP blues, but no true depression. Delivery Date: 09/09/21 Last Updated by: Tess Longo DO 40 sec shoulder dystocia Evaluation Evaluation Baseline heart rate: 130 Variability: Moderate (11-25) monitor accelerations: Present Monitor Decelerations: Absent Status: Category l Dilation (cm): 2 Effacement (%): 10 station: -3 [facility] Medical History (Updated 06/12/24 @ 15:49 by Linnette Corona DO) Post-term , 40-42 weeks of gestation Hyperlipidemia (~2009) Vaginal delivery Chicken pox (~1988) Kidney infection ADHD (~1996) Surgical History History of wisdom tooth extraction Family History (Updated 10/17/23 @ 15:45 by Lida Hawley RN) Mother Depression Alcoholism Cirrhosis with alcoholism Born by section Smoker Seborrheic keratosis Father Parkinsons Myocardial infarct Stented coronary artery Stroke Grandfather Alcoholism Heavy smoker Grandmother Diabetes mellitus Depression History of open heart surgery Grandfather Myocardial infarct Gout Club foot of both lower extremities Grandmother Cancer Breast cancer Uncle Alcoholism Substance abuse Depression Social History marital status: number of children: 2 household members: spouse and children lives independently: Yes caregiver/support person: Yes housing: house pets and animals: Yes (cat and dog) education level: college (some college) occupational status: employed (regional driver) current occupational exposures/hazards: No special jojo needs: Yes (Taoism waiver to decline COVID vaccines. ) travel history: over 6 months ago seatbelt use: always helmet use: Yes water heater temp set < 120 deg: Yes working smoke detector in home: Yes fire extinguisher in home: Yes carbon monox detector in home: Yes firearms in home: Yes firearms unloaded and locked: Yes do you feel safe at home: Yes Smoking Status: Never smoker second hand exposure: Yes ( smokes) alcohol intake: former substance use type: marijuana during the past year weight has: increased > 10 lbs (started gaining weight after she stopped breast feeding) well-balanced diet: daily or most days daily servings fruits/ve or more times/day caffeine: Yes (1 small-med cup coffee daily. ) Type(s) of exercise: walking and normal ROM and activity frequency: daily Meds Home Medications and Allergies Home Medications Medication Instructions Recorded Confirmed Type prenat.vits,rossana,[id number] 1 tab PO DAILY 05/13/19 06/15/24 History Allergies Allergy/AdvReac Type Severity Reaction Status Date / Time NSAIDS (Non-Steroidal Allergy Severe Closes up Verified 06/12/24 14:40 Anti-Inflamma airway! red dye AdvReac Headache Verified 06/12/24 14:40 Review of Systems Review of Systems ROS: Yes All systems reviewed with the patient and are negative except as otherwise documented OB Exam Vital signs Blood Pressure: 112/72 Pulse Rate: 83 Respiratory Rate: 17 Temperature: 96.8 F HENMT Head: normal to inspection and normocephalic Eyes General: appearance normal, both eyes and all related structures Resp Effort & Inspection: normal respiratory effort and able to speak in complete sentences Extremities Lower extremity: Yes normal to inspection GI Inspection: normal to inspection Other: gravid, nontender, nondistended Objective Labs 06/15/24 18:50 Labs: Laboratory Results - last 24 hr 06/15/24 18:50 WBC 11.9 H RBC 4.43 Hgb 13.2 Hct 38.5 MCV 87.0 MCH 29.8 MCHC 34.2 RDW 14.5 Plt Count 231 Neut % (Auto) 71.7 Lymph % (Auto) 18.7 L [place] % (Auto) 6.5 Eos % (Auto) 2.4 Baso % (Auto) 0.7 Neut # (Auto) 8500 H Lymph # (Auto) 2200 [place] # (Auto) 800 Eos # (Auto) 300 Baso # (Auto) 100 Blood Type A Positive Antibody Screen Negative Assessment and Plan Assessment and Plan Assessment and Plan narrative: 38yo at 41+4wks admitted for late term induction of labor. -CBC, T&S on admission -continuous EFM -epidural PRN -GBS POS, start ampicillin for ppx -PPH risk low -VTE risk low, SCDs with epidural -anticipate L&D Counseling: Common procedures and interventions related to the management of were explained to the patient, including assistance at vaginal delivery with episiotomy, vacuum, or forceps, use of medications to stop premature labor or induce labor, and assessment including auscultation (listening to the heart), use of electronic monitoring (external and / or internal), and use of scalp electrode and/or intrauterine pressure catheter.? It was also explained that approximately 20-30% of mothers have a need for delivery during their labor course. It was explained to the patient that , labor and delivery are ordinarily normal physiological events and can be expected to provide a healthy outcome for mother and baby in the majority of cases. However, there are complications that may arise during , labor, and delivery, such as: hemorrhage requiring administration of blood and/or blood products, surgical intervention, possibly even hysterectomy for life-saving purposes; possibility of infection requiring antibiotics, prolonged hospital stay, and rarely surgical intervention; possibility of blood clots;? possibility of retained products of conception requiring surgical intervention;? possibility of serious tears or injury to the vagina, cervix, perineum, or rectum;? possibility of injury to abdominal structures if delivery is required;? and rarely maternal or may occur. H&P completed after delivery due to rapid overnight progression
[2024-06-16] MEDS: WITCH HAZEL/GLYCERIN PADS 1 EACH TOP (06:27)
[2024-06-16] MEDS: LANOLIN OINT 7 GM 1 APPLIC TOP (06:28)
[2024-06-16] MEDS: DERMOPLAST SPRAY 20% 60 ML 1 SPRAY TOP (06:28)
[2024-06-16] MEDS: ACETAMINOPHEN 325 MG TABLET 650 MG PO ×2 (06:30→12:34)
[2024-06-16 08:14] VITALS: BP 112/72; PULSE 83; RESP 17; TEMP 36
--- NOTE | 2024-06-17 08:57 | P.DS_ITS ---
Discharge Providers Provider Date of admission: 06/15/24 17:36 Discharge Date: 06/17/24 Primary care physician: Doctor Ar MD Consults: 06/15/24 17:51 Consult to Anesthesiology Urgent Comment: Consulting Provider: Anesthesiologist Reason for consultation: Epidural 06/17/24 04:45 Consult to Integration Consultant Routine Comment: Discharge provider: Anika Bella MD Summary Hospital Course Date Patient Seen: 06/17/24 Time Patient Seen: 09:06 Diagnoses: IOL at term, AMA s/p Hospital Course: 38yo admitted at 41w+4d for IOL at late term, advanced maternal age. course notable for +GBS. Pt received IV abx for GBS treatment and underwent cervical ripening with misoprostol. Rapid spontaneous progression of labor thereafter to complete dilation, uncomplicated second stage with delivery of LBFI under epidural analgesia. Note pt did necessitate replacement of epidural prior to second stage secondary to inadequate analgesia. course uncomplicated, discharged to home on PPD1 meeting all discharge milestones, exclusively, declines contraception, routine precautions reviewed on discharge. Peripartum Data Infant Delivery Method: Natural Vaginal Laceration Description: Perineal - 1st Degree Episiotomy description: None complications: none [place] 1: Gender: Female Disposition of : home Status at Discharge Cognitive/behavioral status at discharge: oriented Functional status at discharge: independent ambulation Overall status at discharge: patient is back to baseline Time Spent with Patient Time attestation: Total time spent providing and/or coordinating discharge services: Time spent: Less than 30 minutes Objective Labs 06/15/24 18:50 Exam Vital Signs (past 8 hours): maternal VSS/afebrile, reviewed in OBIX and wnl Const General: cooperative, comfortable and well developed Nutritional Appearance: average body habitus Orientation: alert, awake and oriented x3 Limitations: mental status not altered Resp Effort & Inspection: normal respiratory effort and able to speak in complete sentences GI Other: fundus firm << umb Other: deferred Skin General: no rashes or lesions noted Neuro General: patient alert, patient awake and patient oriented x3 Extrem General: normal to inspection Psych Mental Status: mental status grossly normal Judgment: judgment good Discharge Plan Discharge Plan Patient Disposition: Home Provider Discharge Comment: Nothing in the vagina for 6 weeks. NO tampons, intercourse, douching, swimming in fresh water/pools/hot tubs. Tub baths are ok after 4 weeks if the tub is cleaned well first. Discharge orders & Medications Prescriptions: New acetaminophen 325 mg Tablet 650 mg PO Q6HR PRN (Reason: Pain, Mild (1-3)) Qty: 30 0RF Continued prenat.vits,rossana,[id number] Tablet 1 tab PO DAILY Follow up/Referrals: Ar,MD Kuldeep [Primary Care Provider] - Diet/Activity/Treatments Diet: Diet as Tolerated and Regular Visit Report/Discharge Packet Stand Alone Forms: Patient Portal/API, Stroke Signs & Symptoms Discharge Data Primary Care Provider: Doctor Ar
[2024-06-17] MEDS: ACETAMINOPHEN 325 MG TABLET 650 MG PO (09:08)
[2024-06-17 09:15] VITALS: BP 118/72; PULSE 82; RESP 13; TEMP 36.4
== END 2024-06-17 10:05 | disposition home or self-care (01) | DRG 807 ==
PROVIDERS: Admitting Provider Student in an Organized Health Care Education/Training Program; Referring Provider Student in an Organized Health Care Education/Training Program; Visit Provider Student in an Organized Health Care Education/Training Program
DX: O48.0 Post-term pregnancy (principal); Z37.0 Single live birth; O99.824 Streptococcus B carrier state complicating childbirth; Z3A.41 41 weeks gestation of pregnancy; O99.214 Obesity complicating childbirth
CPT/HCPCS: 36415; 59050; 59200; 85025; 86850; 86900; 86901; G0379; J0290; J3010; S0191